=== PATIENT | male | born 1995 | race Caucasian/White ===

== ENCOUNTER 2018-01-21 13:57 | Emergency (ER) | payer MEDICAID ==
[2018-01-21 14:09] VITALS: BP 150/89
--- NOTE | 2018-01-21 15:45 | ED Physician Documentation ---
PD HPI URI - Stated complaint Stated Complaint: VOMITING/FEVER/SORE THROAT - Chief complaint Chief Complaint: Heent - History obtained from History obtained from: Patient, Family - History of Present Illness Timing - onset: How many days ago (4) Timing duration: Days (4) Timing details: Gradual onset Pain level max: 5 Pain level now: 4 Associated symptoms: Fever, Chills, Nasal congestion, Rhinorrhea, Sore throat, Dry cough, Other (nausea, no vomiting). No: Hemoptysis, Chest pain, Dyspnea Contributing factors: Sick contact Improves by: Rest Worsened by: Activity, Breathing Recently seen: Not recently seen Review of Systems Constitutional: reports: Fever, Chills Nose: reports: Rhinorrhea / runny nose, Congestion Respiratory: reports: Cough Skin: denies: Rash Musculoskeletal: denies: Neck pain, Back pain Neurologic: denies: Headache PD PAST MEDICAL HISTORY - Past Medical History Cardiovascular: None Respiratory: None Neuro: None Endocrine/Autoimmune: None GI: None : None HEENT: None Psych: None Musculoskeletal: None Derm: None - Past Surgical History Past Surgical History: No - Present Medications Home Medications: Ambulatory Orders Medication Instructions Recorded Confirmed Benzonatate [Tessalon Perle] 100 - 200 mg PO TID PRN #30 capsule 01/21/18 Cetirizine HCl/Pseudoephedrine 1 each PO BID PRN #30 tab.er.12h 01/21/18 [Zyrtec-D Tablet] Ondansetron Odt [Zofran] 4 mg TL Q6H PRN #10 tablet 01/21/18 - Allergies Allergies/Adverse Reactions: Allergies Allergy/AdvReac Type Severity Reaction Status Date / Time hazelnut Allergy Unknown Verified 01/21/18 15:31 - Social History Does the pt smoke?: No Smoking Status: Never smoker Does the pt drink ETOH?: No Does the pt have substance abuse?: No - Immunizations Immunizations are current?: Yes - POLST Patient has POLST: No PD ED PE NORMAL - Vitals Vital signs reviewed: Yes - General General: Alert and oriented X 3, No acute distress, Well developed/nourished - HEENT HEENT: Ears normal, Moist mucous membranes, Pharynx benign - Neck Neck: Supple, no meningeal sign, No adenopathy - Cardiac Cardiac: RRR, Strong equal pulses - Respiratory Respiratory: No respiratory distress, Clear bilaterally - Abdomen Abdomen: Soft, Non tender, Non distended - Derm Derm: Warm and dry, No rash - Neuro Neuro: Alert and oriented X 3 - Psych Psych: Normal mood, Normal affect Results - Vitals Vitals: Vital Signs - 24 hr 01/21/18 01/21/18 14:06 15:56 Temperature 36.6 C Heart Rate 77 78 Respiratory 16 17 Rate Blood Pressure 150/89 H O2 Saturation 100 Oxygen O2 Source Room air - Labs Labs: Laboratory Tests 01/21/18 14:10 Influenza A (Rapid) Negative Influenza B (Rapid) Negative Influenza Types A,B Ag - PD MEDICAL DECISION MAKING - ED course Complexity details: considered differential, d/w patient ED course: Patient is a 22-year-old male who presents to the emergency department with what appears to be a viral URI. No evidence of sepsis. No evidence of pneumonia. Influenza negative. We will continue supportive care and follow-up with his doctor. Patient counseled regarding signs and symptoms for which I believe and urgent re-evaluation would be necessary. Patient with good understanding of and agreement to plan and is comfortable going home at this time This document was made in part using voice recognition software. While efforts are made to proofread this document, sound alike and grammatical errors may occur. Departure - Departure Disposition: 01 Home, Self Care Clinical Impression: Viral syndrome Condition: Good Instructions: ED Viral Syndrome Follow-Up: your,doctor in 1 week [Other] Prescriptions: Benzonatate [Tessalon Perle] 100 - 200 mg PO TID PRN #30 capsule PRN Reason: Cough Cetirizine HCl/Pseudoephedrine [Zyrtec-D Tablet] 1 each PO BID PRN #30 tab.er.12h PRN Reason: Nasal Congestion Ondansetron Odt [Zofran] 4 mg TL Q6H PRN #10 tablet PRN Reason: Nausea / Vomiting Comments: Drink plenty of fluids and rest. Return if you worsen. Forms: Activity restrictions Discharge Date/Time: 01/21/18 15:56
== END 2018-01-21 15:56 | disposition home or self-care (01) ==
LOC: ED 13:57
DX: B34.9 Viral infection, unspecified (principal)
CPT/HCPCS: 87275; 87276; 99283

== ENCOUNTER 2018-06-23 16:50 | Emergency (ER) | payer MEDICAID ==
[2018-06-23 17:03] VITALS: BP 105/67
== END 2018-06-23 18:42 | disposition left against medical advice (07) ==
LOC: ED 16:50
DX: Z53.21 Procedure and treatment not carried out due to patient leaving prior to being seen by health care provider (principal)

== ENCOUNTER 2018-06-24 07:57 | Emergency (ER) | payer MEDICAID ==
[2018-06-24 08:11] VITALS: BP 123/65
--- NOTE | 2018-06-24 08:17 | ED Physician Documentation ---
History of Present Illness - Stated complaint Stated Complaint: RE-EVAL ANKLE INJ FOR WORK RELEASE - Chief complaint Chief Complaint: Ext Problem - Additonal information Additional information: 22 male sprained ankle 03 of June seen by medical in [facility] xrays = no fx has been wearing a boot feeling better and would like to return to work but needs a note Review of Systems Musculoskeletal: reports: Pain with weight bearing PD PAST MEDICAL HISTORY - Past Medical History Cardiovascular: None Respiratory: None Endocrine/Autoimmune: None GI: None : None HEENT: None Psych: None Musculoskeletal: None Derm: None - Past Surgical History Past Surgical History: No - Present Medications Home Medications: Ambulatory Orders Medication Instructions Recorded Confirmed No Known Home Medications [No 06/23/18 06/24/18 Known Home Medications] - Allergies Allergies/Adverse Reactions: Allergies Allergy/AdvReac Type Severity Reaction Status Date / Time hazelnut Allergy Unknown Verified 06/24/18 08:11 - Social History Does the pt smoke?: No Smoking Status: Never smoker Does the pt drink ETOH?: No Does the pt have substance abuse?: No - Immunizations Immunizations are current?: Yes - POLST Patient has POLST: No PD ED PE NORMAL - Vitals Vital signs reviewed: Yes - Extremities Extremities: Other (ankle s swelling or bony TTP, no sig laxity, MSV intact) Results - Vitals Vitals: Vital Signs - 24 hr 06/24/18 08:07 Heart Rate 71 Respiratory 12 Rate Blood Pressure 123/65 O2 Saturation 98 Oxygen O2 Source Room air PD MEDICAL DECISION MAKING - Sepsis Event Vital Signs: Vital Signs - 24 hr 06/24/18 08:07 Heart Rate 71 Respiratory 12 Rate Blood Pressure 123/65 O2 Saturation 98 Oxygen O2 Source Room air Departure - Departure Disposition: 01 Home, Self Care Clinical Impression: Ankle sprain Qualifiers: Encounter type: initial encounter Involved ligament of ankle: unspecified ligament Laterality: right Qualified Code(s): S93.401A - Sprain of unspecified ligament of right ankle, initial encounter Condition: Good Instructions: ED Sprain Ankle W X Ray Comments: The ankle seems to heave healed well. I think you are fine to go back to work. Recommend taking motrin before your shift and applying ice and elevating the ankle during your breaks if it gets sore. Wear the light weight brace we gave you as needed for comfort. I don't think you need the heavy boot any longer Forms: Activity restrictions
== END 2018-06-24 08:32 | disposition home or self-care (01) ==
LOC: ED 07:57
DX: Z02.89 Encounter for other administrative examinations (principal); S93.401A Sprain of unspecified ligament of right ankle, initial encounter
CPT/HCPCS: 99282